=== PATIENT | male | born 2005 | race Caucasian/White ===

== ENCOUNTER 2024-04-13 22:19 | Emergency (ER) | payer OTHER ==
[2024-04-13 22:30] VITALS: BP 128/73; PULSE 98; RESP 20; TEMP 98.8; BMI 29.5
[2024-04-13] MEDS ORDERED: ACETAMINOPHEN 500 MG TABLET (FP) ONE (23:41)
[2024-04-13] MEDS ORDERED: IBUPROFEN 400 MG TABLET (FP) PO ONE (23:41)
[2024-04-13] MEDS: ACETAMINOPHEN 500 MG TABLET (FP) PO ONE (23:43)
[2024-04-13] MEDS: IBUPROFEN 400 MG TABLET (FP) PO ONE (23:43)
== END 2024-04-14 01:03 | disposition home or self-care (01) ==
LOC: JERFT 22:19
DX: J02.9 Acute pharyngitis, unspecified (principal); R09.82 Postnasal drip; J06.9 Acute upper respiratory infection, unspecified; R09.81 Nasal congestion; R51.9 Headache, unspecified; M79.10 Myalgia, unspecified site; R50.9 Fever, unspecified; R11.10 Vomiting, unspecified; Z20.822 Contact with and (suspected) exposure to COVID-19
CPT/HCPCS: 0241U-QW; 87651; 99283-25